=== PATIENT | male | born 1995 | race Caucasian/White ===

== ENCOUNTER 2024-12-08 10:57 | Emergency (ER) | payer MEDICAID ==
[~2024-12-08] VITALS: Ht 175.3 cm; Wt 6.4 kg
[2024-12-08 13:04] LABS: BILIRUBIN,URINE NEGATIVE (Neg); CLARITY,URINE SLIGHTLY CLOUDY (Clear); COLOR,URINE YELLOW (Yellow); GLUCOSE, URINE NEGATIVE (Neg); KETONES,URINE NEGATIVE (Neg); LEUKOCYTE ESTERASE ,URINE NEGATIVE (Neg); NITRITES, URINE NEGATIVE (Neg); OCCULT BLOOD,URINE NEGATIVE (Neg); PROTEIN,URINE NEGATIVE (Neg)
[2024-12-08 13:13] LABS: UA COLLECTION TYPE CLN CATCH MIDSTREAM
[2024-12-08 13:15] LABS: AMORPHOUS URATES 2+; BACTERIA,URINE NONE SEEN /HPF (Neg); RBC,URINE NONE SEEN /HPF (0-2); SQUAMOUS EPITHELIAL CELL,UR NONE SEEN /LPF (FEW); WBC,URINE NONE SEEN /HPF (0-4)
[2024-12-08 13:58] VITALS: BP 100/55; PULSE 64; RESP 16; TEMP 97.8; O2SAT 100
== END 2024-12-08 14:02 ==
LOC: ER 10:58
DX: R45.1 Restlessness and agitation (principal); F41.9 Anxiety disorder, unspecified; F20.9 Schizophrenia, unspecified
CPT/HCPCS: 81001; 99283